=== PATIENT | male | born 1970 | race Caucasian/White ===

== ENCOUNTER 2023-01-24 11:05 | Outpatient (REF) | payer OTHER, SELFPAY ==
[2023-01-24 13:07] LABS: MANUAL DIFF FLAG NO
[2023-01-24 13:28] LABS: Basophils Absolute Auto 0.1 X10*3/uL (0.0-0.2); Basophils Percent Auto 1.2 % (0-2); Eosinophils Absolute Auto 0.2 X10*3/uL (0.0-0.4); Eosinophils Percent Auto 2.4 % (0-4); Hematocrit 46.4 % (42.0-52.0); Hemoglobin 16.3 g/dl (14.0-18.0); Imm Gran Abs Auto 0.03 X10*3/uL (0.00-0.03); Imm Gran Pct Auto 0.4 % (0.0-0.4); Lymphocytes Absolute Auto 2.6 X10*3/uL (1.2-4.9); Lymphocytes Percent Auto 31.2 % (20-40); Mean Corpuscular HGB Conc 35.1 g/dl (31.0-36.0); Mean Corpuscular Hemoglobin 31.5 pg (27.0-33.0); Mean Corpuscular Volume 89.7 fL (80.0-98.0); Monocytes Absolute Auto 0.6 X10*3/uL (0.1-1.2); Monocytes Percent Auto 7.8 % (2-11); Neutrophils Absolute Auto 4.7 x10*3/uL (2.0-8.3); Platelet Count 279 X10*3/uL (160-400); Red Blood Count 5.17 X10*6/uL (4.60-5.80); Red Cell Distribution Width 12.5 % (11.0-16.0); White Blood Count 8.2 X10*3/uL (4.8-10.8)
[2023-01-24 13:37] LABS: Estimated Average Glucose 100 mg/dL; Hemoglobin A1C 137.3288 umol/L; Hemoglobin A1c % 5.1 %
[2023-01-24 13:58] LABS: Alanine Aminotransferase 88 U/L (0-40); Albumin Level 4.3 g/dL (3.5-5.0); Alkaline Phosphatase 62 U/L (39-117); Anion Gap 17 (12-20); Aspartate Amino Transferase 62 U/L (5-37); Bilirubin Total 0.5 mg/dL (0.0-1.0); Blood Urea Nitrogen 10 mg/dL (9-16); Calcium 9.7 mg/dL (8.4-10.2); Carbon Dioxide 25 mmol/L (22-29); Chloride 102 mmol/L (96-108); Estimated Glomerular Filt Rate > 60; Glucose Random 90 mg/dL (60-115); Potassium 4.1 mmol/L (3.3-5.1); Sodium 140 mmol/L (135-145)
[2023-01-24 14:14] LABS: Prostate Specific Antigen 0.39 ng/mL (<0.05-4.0)
== END 2023-01-24 11:06 | disposition home or self-care (01) ==
LOC: HO.MANLDS 11:05
PROVIDERS: Visit Provider Physician Assistant
DX: Z12.5 Encounter for screening for malignant neoplasm of prostate (principal); R73.01 Impaired fasting glucose
CPT/HCPCS: 36415; 80053; 83036; 84153; 85025

== ENCOUNTER 2023-03-17 07:33 | Outpatient (REF) | payer OTHER, SELFPAY ==
[2023-03-17 13:09] LABS: MANUAL DIFF FLAG NO
[2023-03-17 13:28] LABS: Basophils Absolute Auto 0.1 X10*3/uL (0.0-0.2); Basophils Percent Auto 1.1 % (0-2); Eosinophils Absolute Auto 0.3 X10*3/uL (0.0-0.4); Eosinophils Percent Auto 3.4 % (0-4); Hematocrit 48.9 % (42.0-52.0); Hemoglobin 16.5 g/dl (14.0-18.0); Imm Gran Abs Auto 0.02 X10*3/uL (0.00-0.03); Imm Gran Pct Auto 0.3 % (0.0-0.4); Lymphocytes Absolute Auto 2.2 X10*3/uL (1.2-4.9); Lymphocytes Percent Auto 29.9 % (20-40); Mean Corpuscular HGB Conc 33.7 g/dl (31.0-36.0); Mean Corpuscular Hemoglobin 31.8 pg (27.0-33.0); Mean Corpuscular Volume 94.2 fL (80.0-98.0); Mean Platelet Volume 10.3 fL (9.4-12.4); Monocytes Absolute Auto 0.6 X10*3/uL (0.1-1.2); Monocytes Percent Auto 7.6 % (2-11); Neutrophils Absolute Auto 4.3 x10*3/uL (2.0-8.3); Neutrophils Percent Auto 57.7 % (45-73); Platelet Count 297 X10*3/uL (160-400); Red Blood Count 5.19 X10*6/uL (4.60-5.80); Red Cell Distribution Width 11.8 % (11.0-16.0); White Blood Count 7.4 X10*3/uL (4.8-10.8)
[2023-03-17 14:03] LABS: Alanine Aminotransferase 55 U/L (0-40); Albumin Level 4.3 g/dL (3.5-5.0); Alkaline Phosphatase 63 U/L (39-117); Anion Gap 16 (12-20); Aspartate Amino Transferase 34 U/L (5-37); Bilirubin Total 0.4 mg/dL (0.0-1.0); Blood Urea Nitrogen 11 mg/dL (9-16); Calcium 9.9 mg/dL (8.4-10.2); Carbon Dioxide 23 mmol/L (22-29); Chloride 103 mmol/L (96-108); Estimated Glomerular Filt Rate > 60; Glucose Random 84 mg/dL (60-115); Iron 76 mcg/dL (45-160); Lipase 54 U/L (8-78); Percent Iron Saturation 22 % (15-50); Potassium 4.5 mmol/L (3.3-5.1); Sodium 137 mmol/L (135-145); Total Iron Binding Capacity 344 mcg/dL (228-428); Total Protein 6.8 g/dL (6.5-8.0); Unsaturated Iron Binding 268 ug/dL
[2023-03-17 14:13] LABS: Erythrocyte Sedimentation Rate 2 MM/HR (0-15)
[2023-03-17 14:23] LABS: Ferritin 455 ng/mL (20-250)
[2023-03-17 15:01] LABS: Amylase 23 U/L (28-100)
== END 2023-03-17 07:34 | disposition home or self-care (01) ==
LOC: HO.MANLDS 07:33
PROVIDERS: Visit Provider Physician Assistant
DX: R10.9 Unspecified abdominal pain (principal)
CPT/HCPCS: 36415; 80053; 82150; 82728; 83540; 83690; 85025; 85652; 86140

== ENCOUNTER 2024-10-30 09:50 | Outpatient (REF) | payer OTHER, SELFPAY ==
--- OUTSIDE RECORDS SUMMARY | 2024-10-30 11:06 | XMS_ITS | Continuity of Care Document ---
Author Organization [facility], [facility] Address [address] [place] [address] Assessment No assessment recorded. Plan of Treatment Reminders Order Date Submit Date Provider Last Modified By Organization Details Last Modified Time Details Appointments FOLLOW UP 15 2024 09:30A M LONDON MANCERA Not available Not available Not available FOLLOW UP 15 2024 09:30A M LONDON MANCERA Not available Not available Not available Lab CMP, serum or plasma 2024 025 [facility], [address] [place] [address], [id number], 10/30/2024 09:43:59 hemoglobi n A1c, QN, blood 2024 025 [facility], [address] [place] [address], [id number], 10/30/2024 09:43:59 CBC w/ auto diff 2024 025 [facility], [address] [place] [address], [id number], 10/30/2024 09:43:59 PSA, serum or plasma 2024 025 [facility], [address] [place] [address], [id number], 10/30/2024 09:43:59 Referral None recorded. Procedures None recorded. Surgeries None recorded. Imaging None recorded. Medication Orders disulfira m 250 mg tablet 2024 025 [id number], [address], [place], [id number], 10/30/2024 09:38:22 Patient TargetsNo targets recorded. Patient InstructionsNo instructions recorded. Reason for Referral None Reported. Problems Name Problem SNOMED Code Status Onset Date Resolution Date Notes Provider Name and Address Organization Details Recorded Time Hypertens munira disorder 24665008 Active 2022 LONDON MANCERA [address] [place] [address], [id number], [facility] 3 10:17:54 Alcohol dependenc e 64049728 Active 2022 LONDON MANCERA [address] [place] [address], [phone], [facility] 3 10:26:36 Nicotine dependenc e 65280553 Active 2022 LONDON MANCERA [address] [place] [address], [id number], [facility] 3 10:29:17 Impaired fasting glycemia 873992231 Active 2022 LONDON MANCERA [address] [place] [address], [phone], [facility] 3 10:33:34 Allergic rhinitis caused by pollen 79655593 Active 2022 LODNON MANCERA [address] [place] [address], [phone], [facility] 3 09:22:55 Abdominal pain 69970960 Active 2022 LONDON MANCERA [address] [place] [address], [address], [facility] 3 13:00:38 C-reactiv e protein above reference range 306361804810 104 Active 2022 LONDON MANCERA [address] [place] [address], [address], [facility] 3 13:00:58 Smoker 97538262 Active 2022 LONDON MANCERA [address] [place], [address], [facility] 3 12:47:16 Strain of gastrocne mius tendon 293808190 Active 2024 LONDON MANCERA [address] [place], [address], [facility] 5 09:46:38 Problem Notes None recorded. Medical Equipment None Reported. Allergies Allergen ID Allergen Name Allergen Category Reaction Reaction Severity Criticality Documentation Date Start Date Code Code System Note Provider Name and Address Organization Details Recorded Time 7012 Product containin g penicilli n (product) medicatio n Not available Not available Not available 01/24/2023 09121 8001 [facility] 7295 Librium medicatio n Not available Not available Not available 04/05/2023 3804 RxNorm LONDON MANCERA [address] [place], [address], [facility] 3 08:46:49 Medications Name Sig Start Date Stop Date Status Note LastModified by Organization Details LastModified Time clonidine HCl 0.1 mg tablet TAKE 1 TABLET BY MOUTH TWICE DAILY 2024 active Not Available Not Available Not Avai lable Zyrtec-D 5 mg-120 mg tablet,exte nded release TAKE 1 TABLET BY MOUTH EVERY 12 HOURS active Not Available Not Available No t Available azithromyci n 250 mg tablet TAKE 2 TABLETS (500 MG) BY ORAL ROUTE ONCE DAILY FOR 1 DAY THEN 1 TABLET (250 MG) BY ORAL ROUTE ONCE DAILY FOR 4 DAYS 07/26 completed Not Available Not Available Not Available benzonatate 200 mg capsule TAKE 1 CAPSULE BY MOUTH THREE TIMES DAILY FOR 14 DAYS NEEDED 07/26 completed Not Available Not Available Not Available hydrocodone 5 mg-acetamin ophen 325 mg tablet TAKE 1 TABLET BY MOUTH EVERY 4 TO 6 HOURS NEEDED FOR PAIN 03/28 completed Not Available Not Available Not Available naltrexone 50 mg tablet Take 1 tablet every day by oral route for 30 days. active Not Available Not Available No t Available L-Carnitine 500 mg tablet Take 1 tablet twice a day by oral route. active Not Available Not Available No t Available clindamycin HCl 150 mg capsule TAKE 1 CAPSULE BY MOUTH THREE TIMES DAILY FOR 7 DAYS 03/28 completed Not Available Not Available Not Available disulfiram 250 mg tablet Take 1 tablet every day by oral route as needed for 30 days. 2024 active Not Available Not Available Not Avai lable amoxicillin 875 mg tablet TAKE 1 TABLET BY MOUTH EVERY 12 HOURS 03/28 completed Not Available Not Available Not Available chlordiazep oxide 25 mg capsule Take 2 capsules every day by oral route for 14 days. 04/05 completed Not Available Not Available Not Available lisinopril 10 mg tablet TAKE 1 TABLET BY MOUTH EVERY DAY 01/29 completed d/c Not Available Not Available Not Available methylpredn isolone 4 mg tablets in a dose pack FOLLOW PACKAGE DIRECTION S 07/26 completed Not Available Not Available Not Available Adult Low Dose Aspirin 81 mg tablet,hipolito yed release Take 1 tablet every day by oral route. active Not Available Not Available No t Available nicotine (polacrilex ) 2 mg buccal lozenge Take 1 tablet every 8 hours by oral route as needed. 2022 active Not Available Not Available Not Avai lable magnesium 1 hs active Not Available Not Ying ilable Not Available potassium 1 qd active Not Available Not Ying ilable Not Available Nicotinamid e Adenine Dinuc. 250 mg once per day active Not Available Not Available No t Available Men's Multivitami n Gummies ONE ONCE PER DAY active Not Available Not Available No t Available nicotine (polacrilex ) 2 mg buccal mini lozenge DISSOLVE 1 LOZENGE BY MOUTH EVERY 8 HOUR NEEDED 01/29 completed Not Available Not Available Not Available Vitals Date Recorded Body height Body mass index (BMI) Body weight Heart rate Oxygen saturation Oxygen saturation in Arterial blood by Pulse oximetry Systolic blood pressure Diastolic blood pressure Provider Name and Address Organization Details Last Updated DateTime 5 177.8 cm 42.4 kg/m2 803966. 26 g 85 /min 99 % 99 % 122 mm[Hg] 80 mm[Hg] Angie Panda [facility] 5 09:42:12 Social History Question Answer Notes LastModified by Organizat ion Details LastModified Time Tobacco Smoking Status Never Smoker Kirk marion [facility] 01/30/2024 09:01:59 Do You Or Have You Ever Used E-cigarettes Or Vape? Never Used Electronic Cigarettes [email or web address] Information not available 01/24/2023 What Was The Date Of Your Most Recent Tobacco Screening? 10/30/2024 [email or web address] Information not available 10/30/2024 Do You Or Have You Ever Used Smokeless Tobacco? Former Smokeless Tobacco User [email or web address] Information not available 01/24/2023 Do You Or Have You Ever Used Any Other Forms Of Tobacco Or Nicotine? Yes Information not available 01/24/2023 Sex: Unknown Functional Status None recorded. Mental Status None recorded. Family History Nothing Reported. Medical History No medical history recorded. Past Encounters Encounter ID Performer Location Encounter Start Date Encounter Closed Date Diagnosis/Indication Diagnosis SNOMED-CT Code Diagnosis ICD10 Code Diagnosis Note [id number] LONDON MANCERA [facility] [address] [address] 10/30/2024 09:24:23 10/30/2024 11:05:24 Alcohol dependence 37740563 F10.21 has med, has been sober for the last few weeks Hypertensive disorder 38 649634 I10 doing well without medication and addition of lifestyle modificati on Impaired f asting glycemia 229303085 R73.01 stable recent check Screening for malignant neoplasm of prostate 944084853 Z12.5 will set up with screening Health Concerns Section Related Observation LastModified by Organization Detai ls LastModified Time None Recorded Concern Status LastModified by Organization Details LastModified Time None Recorded Payers Encounter Date Sequence Insurance Name Policy Number Policy Sebastian Covered Member ID Sebastian Member ID Guarantor Name 10/30/2024 1 [facility] [id number] Yariel Ch [id number] Yariel Ch Notes Date Note Type Note Provider Name a nd Address Organization Details Recorded Time 10/30/2024 text/html 6 mos f/u alcohol dependence: the patient is doing much better with the alcohol intakehasn't been drinking on the disulfiram and avoids it when he's on it HTN: stable at home for patient and he been good in office needs blood work, last blood work was done in 2 years IFG: needs blood work otherwise doing well LONDON MANCERA [address] [place] [address], [place], [address], [facility] 10/30/2024 09:44:43
--- OUTSIDE RECORDS SUMMARY | 2024-10-30 11:06 | XMS_ITS | Data Portability ---
Author Organization [facility] Home Service Address [address] [place] [address] Assessment Encounter Date Assessment Date Assessment LastModified by Organization Details LastModified Time 07/26/2024 07/26/2024 Patient presented for medication refill. Patient tolerating medication well at current dose without adverse effects. Refilled as below. Discussed plan with patient, who expressed understanding . Follow up as noted below. [email or web address] Not available 07/26/2024 09:43:33 Plan of Treatment Reminders Order Date Submit Date Provider Last Modified By Organization Details Last Modified Time Details Appointments FOLLOW UP 15 2024 09:30A M LONDON MANCERA Not available Not available Not available FOLLOW UP 15 2024 09:30A M LONDON MANCERA Not available Not available Not available Lab CMP, serum or plasma 2024 025 [facility], [address] [place] [address], [id number], 10/30/2024 09:43:59 hemoglobi n A1c, QN, blood 2024 025 [facility], [address] [place] [address], [id number], 10/30/2024 09:43:59 CBC w/ auto diff 2024 025 [facility], [address] [place] [address], [id number], 10/30/2024 09:43:59 PSA, serum or plasma 2024 025 [facility], [address] [facility], [place], [address], 10/30/2024 09:43:59 Referral None recorded. Procedures None recorded. Surgeries None recorded. Imaging CT, lower extremity , w/o contrast 2024 [email or web address] [facility], [address] [facility], [facility] [address], [place], [address], 08/07/2024 08:08:23 Medication Orders disulfira m 250 mg tablet 2024 [facility][id number], [address], [place], [id number], 10/30/2024 09:38:22 disulfira m 250 mg tablet [address] [id number], [address], [place], [id number], 07/26/2024 09:44:11 Medrol (Yevgeniy) 4 mg tablets in a dose pack 2023 [facility] #[id number], [address], [place], [id number], 07/26/2024 09:43:34 Zithromax Z-Yevgeniy 250 mg tablet 2023 [facility] [place] [place] #[address]85, [address] [place] [address], [id number], 07/26/2024 09:42:28 benzonata te 200 mg capsule 2023 [facility] [place] [place] #67452, [address], [place], [id number], 07/26/2024 09:42:33 Patient TargetsNo targets recorded. Patient InstructionsNo instructions recorded. Reason for Referral None Reported. Results Created Date Observation Date Name Description Value Unit Range Abnormal Flag Note LastModifiedBy Organization Detail LastModifiedTime 08/16/19 25 08/14/2024 CT, lower extre mity, w/o contr ast No observ ation record ed. [email or web address] [facility] [address] [address], [place], [address], 08/16/2024 16:39:26 Result Notes None recorded. Problems Name Problem SNOMED Code Status Onset Date Resolution Date Notes Provider Name and Address Organization Details Recorded Time Hypertens munira disorder 32832751 Active 2022 LONDON MANCERA [address] [place] [address], [address], [facility] 3 10:17:54 Alcohol dependenc e 22779410 Active 2022 LONDON MANCERA [address] [place] [address], [address], [facility] 3 10:26:36 Nicotine dependenc e 51749515 Active 2022 LONDON MANCERA [address] [place] [address], [address], [facility] 3 10:29:17 Impaired fasting glycemia 582242467 Active 2022 LONDON MANCERA [address] [place] [address], [address], [facility] 3 10:33:34 Allergic rhinitis caused by pollen 63671444 Active 2022 LONDON MANCERA [address] [place] [address], [address], [facility] 3 09:22:55 Abdominal pain 92241758 Active 2022 LONDON MANCERA [address] [place] [address], [address], [facility] 3 13:00:38 C-reactiv e protein above reference range 967091277645 104 Active 2022 LONDON MANCERA [address] [place] [address], [address], [facility] 3 13:00:58 Smoker 06063520 Active 2022 LONDON MANCERA [address] [place], [address], [facility] 3 12:47:16 Strain of gastrocne mius tendon 518176891 Active 2024 LONDON MANCERA [address] [place], [address], [facility] 5 09:46:38 Problem Notes None recorded. Procedures Surgical History None recorded. Imaging Results Imaging Date Name Status LastModified by Organiz ation Details LastModified Time 08/14/2024 CT, lower extremity, w/o contrast completed [email or web address] [facility] [address] [address], [place], [address], 08/16/2024 16:39:26 Procedure Notes None recorded. Medical Equipment None Reported. Allergies Allergen ID Allergen Name Allergen Category Reaction Reaction Severity Criticality Documentation Date Start Date Code Code System Note Provider Name and Address Organization Details Recorded Time 7012 Product containin g penicilli n (product) medicatio n Not available Not available Not available 01/24/2023 64080 8001 SNOMED [facility] 10:04:46 7295 Librium medicatio n Not available Not available Not available 04/05/2023 3804 RxNorm LONDON MANCERA [address] [place], [address], [facility] 3 08:46:49 Medications Name Sig Start [...] LOZENGE BY MOUTH EVERY 8 HOUR NEEDED 07/16 /2024 completed Not Available Not Available Not Available Vitals Date Recorded Body height Body mass index (BMI) Body weight Heart rate Oxygen saturation Oxygen saturation in Arterial blood by Pulse oximetry Systolic blood pressure Diastolic blood pressure Provider Name and Address Organization Details Last Updated DateTime 4 177.8 cm 38.6 kg/m2 302836. 35 g 74 /min 99 % 99 % 130 mm[Hg] 82 mm[Hg] Kirk Pérez [facility] 4 09:04:20 Date Recorded Body height Body mass index (BMI) Body weight Heart rate Oxygen saturation Oxygen saturation in Arterial blood by Pulse oximetry Systolic blood pressure Diastolic blood pressure Provider Name and Address Organization Details Last Updated DateTime 4 177.8 cm 38.7 kg/m2 168868. 94 g 108 /min 97 % 97 % 144 mm[Hg] 86 mm[Hg] Angie Bowden [facility] 4 09:02:51 Date Recorded Body height Body mass index (BMI) Body weight Heart rate Oxygen saturation Oxygen saturation in Arterial blood by Pulse oximetry Systolic blood pressure Diastolic blood pressure Provider Name and Address Organization Details Last Updated DateTime 5 177.8 cm 41.4 kg/m2 913104. 68 g 85 /min 98 % 98 % 138 mm[Hg] 90 mm[Hg] LONDON MANCERA [address] [place] [address], [address] 5 09:37:07 Date Recorded Body height Body mass index (BMI) Body weight Heart rate Oxygen saturation Oxygen saturation in Arterial blood by Pulse oximetry Systolic blood pressure Diastolic blood pressure Provider Name and Address Organization Details Last Updated DateTime 5 177.8 cm 41.4 kg/m2 984864. 76 g 88 /min 99 % 99 % 170 mm[Hg] 102 mm[Hg] Angie Bowden [facility] 5 16:17:07 Date Recorded Body height Body mass index (BMI) Body weight Heart rate Oxygen saturation Oxygen saturation in Arterial blood by Pulse oximetry Systolic blood pressure Diastolic blood pressure Provider Name and Address Organization Details Last Updated DateTime 5 177.8 cm 42.4 kg/m2 429634. 26 g 85 /min 99 % 99 % 122 mm[Hg] 80 mm[Hg] Angie Bowden [facility] 09:42:12 Social History Question Answer Notes LastModified by Organizat ion Details LastModified Time Tobacco Smoking Status Never Smoker Kirk marion [facility] 01/30/2024 09:01:59 Do You Or Have You Ever Used E-cigarettes Or Vape? Never Used Electronic Cigarettes Information not available 01/24/2023 What Was The Date Of Your Most Recent Tobacco Screening? 10/30/2024 [email or web address] Information not available 10/30/2024 Do You Or Have You Ever Used Smokeless Tobacco? Former Smokeless Tobacco User [email or web address] Information not available 01/24/2023 Do You Or Have You Ever Used Any Other Forms Of Tobacco Or Nicotine? Yes [email or web address] Information not available 01/24/2023 Sex: Unknown Functional Status None recorded. Mental Status None recorded. Family History Nothing Reported. Medical History No medical history recorded. Past Encounters Encounter ID Performer Location Encounter Start Date Encounter Closed Date Diagnosis/Indication Diagnosis SNOMED-CT Code Diagnosis ICD10 Code Diagnosis Note [id number] LONDON MANCERA [facility] [address] [facility],[place] [address] 01/24/2023 09:44:30 01/24/2023 10:41:54 Active or passive immunization 810016958 Z23 advised Hypertensive disorder 38 115523 I10 needs to start lisinopril will have a f/u in a monthtakes BP at home so he can monitorkno to call if he has a side effect Alcohol dependence 13349 003 F10.20 agreed to start naltrexone will fu in a month Nicotine dependence 5629 4008 F17.210 will start on lozenge; he has already but doing it at home so down to 2 mg Impaired f asting glycemia 156022284 R73.01 needs levels checked Screening for malignant neoplasm of colon 292632321 Z12.11 given cologuarda benjamin if he gets a positive result he still needs a colonoscop y Screening for malignant neoplasm of prostate 728613624 Z12.5 will set up with screening [id number] LONDON MANCERA [facility] [address] [facility],[place] [address] 02/21/2023 09:26:36 02/21/2023 09:58:36 Hypertensive disorder 64063770 I10 no side effects with lisinopril Impaired f asting glycemia 833710843 R73.01 needs levels checked Nicotine dependence 5629 4008 F17.210 will start on lozenge; he has already but doing it at home so down to 2 mg Alcohol dependence 75463 003 F10.20 no benefit with the naltrexone will switch clonidine [id number] LONDON MANCERA [facility] [address] [facility],[place] [address] 03/28/2023 09:40:59 03/28/2023 10:20:07 Alcohol dependence 21425178 F10.20 will trial a librium taperpatie nt will let me know how he does over the portal Hypertensive disorder 38 313984 I10 no side effects with lisinopril Impaired f asting glycemia 336811828 R73.01 stable recent check Nicotine dependence 5629 4008 F17.210 stable [id number] LONDON MANCERA [facility] [address] [facility],[place] [address] 12/26/2023 09:29:03 12/26/2023 15:49:14 Depression screening 798975417 Z13.31 0 Alcohol dependence 31528 003 F10.21 sober for 5 mos Hypertensive disorder 38 818418 I10 no side effects with lisinopril doing well [id number] LONDON MANCERA [facility] [address] [facility] [address] [address] 01/30/2024 08:57:01 01/30/2024 16:03:35 Depression screening 012859301 Z13.31 0 Alcohol dependence 76369 003 F10.21 sober for 6-7 mos Impaired f asting glycemia 868679207 R73.01 stable recent check Nicotine dependence 5629 4008 F17.210 stable Hypertensive disorder 38 458172 I10 doing well without medication and addition of lifestyle modificati on [id number] LONDON MANCERA [facility] [address] [facility] [address] [address] 04/19/2024 08:57:30 04/19/2024 09:17:33 Acute bronchitis 36326199 J20.8 start on z yevgeniy and medrol yevgeniy for the wheezing and bronchitis [id number] LONDON MANCERA [facility] [address] [facility] [address],[place] [address] 07/26/2024 09:26:10 07/26/2024 11:46:59 Renewal of prescription 368158388 Z76.0 stable Alcohol dependence 99809 003 F10.21 started drinking again Strain of gastrocnemius tendon 011148868 S86.111A will set up with CT LE to check for strain vs tear [id number] LONDON MANCERA [facility] [address] [facility] [address] [address] 08/23/2024 16:04:50 08/23/2024 16:39:29 Alcohol dependence 07311985 F10.21 has med, has been sober for the last few weeks Strain of gastrocnemius tendon 972770059 S86.111A resolved, using mag [id number] LONDON MANCERA [facility] [address] [facility] [address] [address] 10/30/2024 09:24:23 10/30/2024 11:05:24 Alcohol dependence 63328437 F10.21 has med, has been sober for the last few weeks Hypertensive disorder 38 130938 I10 doing well without medication and addition of lifestyle modificati on Impaired f asting glycemia 601791406 R73.01 stable recent check Screening for malignant neoplasm of prostate 790165876 Z12.5 will set up with screening Health Concerns Section Related Observation LastModified by Organization Detai ls LastModified Time None Recorded Concern Status LastModified by Organization Details LastModified Time None Recorded Advance Directives Directive None Recorded Payers Encounter Date Sequence Insurance Name Policy Number Policy Sebastian Covered Member ID Sebastian Member ID Guarantor Name 01/30/2024 1 [employer] [id number] Yariel Ch [id number] Yariel Ch 04/19/2024 1 [employer] [id number] Yariel Ch [id number] Yariel Rodriguezjczyk 07/26/2024 1 [employer] [id number] Yariel Ch [id number] 02 Yariel Boleszjennifer 08/23/2024 1 [employer] [id number] Yariel Rodriguezjczjennifer [id number] 02 Yariel Boleszyk 10/30/2024 1 [employer] [id number] Yariel Ch [id number] Yariel Ch Notes Date Note Type Note Provider Name and Address Organization Details Recorded Time 4 text/html BP check HTN: today in the office the patient BP is 130/80 L armthe patient is doing well on the BP medication with no side effects and no adjustment of their medications needed today at the appointmentwell-control led on medicationdenies chest pain, sob, ankle swelling, orthopnea, palpitations d/c lisinopril, BP is average 110/70 at home without medicationhas lost weight, stopped drinking and is eating betteris down 20 pounds from December (270 lbs to 269 lbs) alcoholism: now been sober for 6-7 mosdoing really well ex smoker: doing well with the lozenges, does have times he craves smoking more than usual and uses them more frequently which is finehas not smoked in about a year LONDON MANCERA [address] [place] [address], [address], [facility] 01/30/2024 09:18:53 4 text/html f/u med check + sick visit The patient presents to the office today with concerns of sick symptoms including cough, wheezing The symptoms started originally on MondayThe patient reports exposure to friends and familyThe patient symptoms mainly involves the cough, chest congestion, fatigue, sore throat, production of yellow mucus, wheezing Pertinent comorbidities include HTN The patient symptoms are alleviated by restThe patient symptoms are exacerbated by activity and coughing fits The patient has tested for COVID-19 and the results was negative BP is fine at home and usually in officeprobably elevated due to his current cold will continue on current dose and medicationworks well for him LONDON MANCERA [address] [place], [address], [facility] 04/19/2024 09:16:49 5 text/html f/u appt the patient reports that he has been doing wellthe patient does report that he had a particularly hard day took a drink and started him drinking again, had been sober 9 mosdisulfiram was back ordered and tried to stay clean on his ownthe patient has started drinking again, drinking about a sleeve of nips/500 mL of hard liquorwill restart the disulfiram for patient, sent to [facility] given stocking issues at his own 3 years patient has had calf pain, right sidedworsens at work, possible due to his boots and walkingrecommended CT for possible gastrocnemius tearing or tendinitis pt agreed LONDON MANCERA [address] [place], [address], [facility] 07/26/2024 09:53:13 5 text/html f/u med check; 1 mos alcohol dependence: the patient did get antabuse but he hasn't really needed it since he has been at work or at the hospital with his mother who is ill the patient recently had a cold due to exposure to illness at the hospitalthe patient reports he has been using magnesium which is helping with the discomfort of his leg, normal CT of his LE which is goodprobably chronic strain/msk spasm will monitor progress otherwise no other questions today at his appt LONDON MANCERA [address] [place], [address], [facility] 08/23/2024 16:43:18 5 text/html 6 mos f/u alcohol dependence: the patient is doing much better with the alcohol intakehasn't been drinking on the disulfiram and avoids it when he's on it HTN: stable at home for patient and he been good in office needs blood work, last blood work was done in 2 years IFG: needs blood work otherwise doing well LONDON MANCERA [address] [place], [address], [facility] 10/30/2024 09:44:43
[2024-10-30 13:20] LABS: MANUAL DIFF FLAG NO
[2024-10-30 13:31] LABS: Basophils Absolute Auto 0.1 X10*3/uL (0.0-0.2); Basophils Percent Auto 1.1 % (0-2); Eosinophils Absolute Auto 0.1 X10*3/uL (0.0-0.4); Eosinophils Percent Auto 1.8 % (0-4); Hematocrit 44.2 % (42.0-52.0); Hemoglobin 15.6 g/dl (14.0-18.0); Imm Gran Abs Auto 0.02 X10*3/uL (0.00-0.03); Imm Gran Pct Auto 0.3 % (0.0-0.4); Lymphocytes Absolute Auto 2.5 X10*3/uL (1.2-4.9); Lymphocytes Percent Auto 34.1 % (20-40); Mean Corpuscular HGB Conc 35.3 g/dl (31.0-36.0); Mean Corpuscular Hemoglobin 31.1 pg (27.0-33.0); Mean Corpuscular Volume 88.2 fL (80.0-98.0); Mean Platelet Volume 9.2 fL (9.4-12.4); Monocytes Absolute Auto 0.6 X10*3/uL (0.1-1.2); Monocytes Percent Auto 8.5 % (2-11); Neutrophils Percent Auto 54.2 % (45-73); Platelet Count 339 X10*3/uL (160-400); Red Blood Count 5.01 X10*6/uL (4.60-5.80); Red Cell Distribution Width 11.8 % (11.0-16.0); White Blood Count 7.3 X10*3/uL (4.8-10.8)
[2024-10-30 13:50] LABS: Estimated Average Glucose 105 mg/dL; Hemoglobin A1C 142.1813 umol/L; Hemoglobin A1c % 5.3 % (<6.0); Total Hemoglobin (HGBA1C) 4125.4372 umol/L
[2024-10-30 13:59] LABS: Alanine Aminotransferase 41 U/L (0-40); Albumin Level 4.2 g/dL (3.5-5.0); Alkaline Phosphatase 58 U/L (39-117); Anion Gap 12 (12-20); Aspartate Amino Transferase 30 U/L (5-37); Bilirubin Total 0.3 mg/dL (0.0-1.0); Blood Urea Nitrogen 13 mg/dL (9-16); Calcium 9.1 mg/dL (8.4-10.2); Carbon Dioxide 23 mmol/L (22-29); Chloride 108 mmol/L (96-108); Estimated Glomerular Filt Rate > 60; Glucose Random 96 mg/dL (60-115); Potassium 4.4 mmol/L (3.3-5.1); Sodium 139 mmol/L (135-145); Total Protein 6.6 g/dL (6.5-8.0)
== END 2024-10-30 09:51 | disposition home or self-care (01) ==
LOC: HO.MANLDS 09:50
PROVIDERS: Visit Provider Physician Assistant
DX: Z12.5 Encounter for screening for malignant neoplasm of prostate (principal); R73.01 Impaired fasting glucose
CPT/HCPCS: 36415; 80053; 83036; 84153; 85025

== ENCOUNTER 2025-05-07 09:55 | Outpatient (REF) | payer OTHER, SELFPAY ==
[2025-05-07 13:00] LABS: MANUAL DIFF FLAG NO
[2025-05-07 13:15] LABS: Hematocrit 46.7 % (42.0-52.0); Hemoglobin 15.8 g/dl (14.0-18.0); Imm Gran Abs Auto 0.04 X10*3/uL (0.00-0.03); Imm Gran Pct Auto 0.6 % (0.0-0.4); Lymphocytes Absolute Auto 2.2 X10*3/uL (1.2-4.9); Mean Corpuscular HGB Conc 33.8 g/dl (31.0-36.0); Mean Corpuscular Hemoglobin 29.2 pg (27.0-33.0); Mean Corpuscular Volume 86.2 fL (80.0-98.0); NRBC Abs Auto 0.000 X10*3/uL (0.0-0.012); NRBC Pct Auto 0.0 /100WBC (0.0-0.2); Platelet Count 350 X10*3/uL (160-400); Red Blood Count 5.42 X10*6/uL (4.60-5.80); White Blood Count 7.1 X10*3/uL (4.8-10.8)
[2025-05-07 13:30] LABS: Hemoglobin A1C 147.8904 umol/L; Total Hemoglobin (HGBA1C) 3961.3564 umol/L
[2025-05-07 13:47] LABS: Alanine Aminotransferase 42 U/L (0-40); Albumin Level 4.6 g/dL (3.5-5.0); Alkaline Phosphatase 97 U/L (39-117); Amylase 27 U/L (28-100); Anion Gap 12 (12-20); Aspartate Amino Transferase 27 U/L (5-37); Blood Urea Nitrogen 12 mg/dL (9-16); Calcium 8.9 mg/dL (8.4-10.2); Carbon Dioxide 27 mmol/L (22-29); Chloride 105 mmol/L (96-108); Estimated Glomerular Filt Rate > 60; Iron 97 mcg/dL (45-160); Lipase 43 U/L (8-78); Percent Iron Saturation 29 % (15-50); Potassium 4.7 mmol/L (3.3-5.1); Sodium 139 mmol/L (135-145); Total Iron Binding Capacity 331 mcg/dL (228-428); Total Protein 6.9 g/dL (6.5-8.0); Unsaturated Iron Binding 234 ug/dL
[2025-05-07 14:13] LABS: Ferritin 307 ng/mL (20-250)
[2025-05-07 17:11] LABS: Gamma Glutamyl Transpeptidase 80 U/L (11-51)
== END 2025-05-07 09:56 | disposition home or self-care (01) ==
LOC: HO.MANLDS 09:55
PROVIDERS: Visit Provider Physician Assistant
DX: R10.32 Left lower quadrant pain (principal); K52.9 Noninfective gastroenteritis and colitis, unspecified; Z80.0 Family history of malignant neoplasm of digestive organs
CPT/HCPCS: 36415; 80053; 82150; 82728; 82977; 83036; 83540; 83690; 85025; 85652; 86140; 86301